=== PATIENT | male | born 1960 | race African-American/Black ===

== ENCOUNTER → 2017-12-17 | Outpatient (CLI) | payer BC ==
--- NOTE | 2017-12-17 17:17 | MR ---
EXAMINATION TYPE: MR lumbar spine wo con DATE OF EXAM: 12/17/2017 COMPARISON: NONE HISTORY: Low Back pain x15 years TECHNIQUE: T1 and T2 axial and sagittal images of the lumbar spine are submitted. FINDINGS: There is no abnormal signal seen within the visualized spinal cord or paraspinal soft tissu es. At L1-2 there is no disc herniation or canal stenosis no foraminal encroachment. At L2-3 there is no disc herniation or canal stenosis. No foraminal encroachment. Hypertrophy of the facets. At L3-4 there is no disc herniation or canal stenosis. There is hypertrophy of the facets. At L4-5 there is facet arthropathy. No disc herniation or canal stenosis. No foraminal encroachment. At L5-S1 there is facet arthropathy. There is mild circumferential disc bulging and mild bilateral fo raminal encroachment. No degenerative disc disease. IMPRESSION: 1. Multilevel facet arthropathy with mild bilateral foraminal encroachment at L5-S1.
== END ==
LOC: RADMRIMAIN 16:08
PROVIDERS: ATTEND Family Medicine
DX: M46.97 Unspecified inflammatory spondylopathy, lumbosacral region (principal)
CPT/HCPCS: 72148

== ENCOUNTER → 2018-06-09 | Outpatient (CLI) | payer BC ==
--- NOTE | 2018-06-09 14:50 | CT ---
EXAMINATION TYPE: CT brain wo con DATE OF EXAM: 06/09/2018 COMPARISON: None HISTORY: 57-year-old male with headaches TECHNIQUE: Examination was done in axial plane without intravenous contrast. Coronal and sagittal r econstructions performed. CT DLP: 1121 mGycm Automated exposure control for dose reduction was used. FINDINGS: There is no evidence of acute intracranial hemorrhage, acute ischemic changes, mass, mass-effect, or extra-axial fluid collection. There is no effacement of cerebral sulci or basal subarachnoid cister ns. There is no hydrocephalus. There is no midline shift. Raymond-white matter distinction is preserv ed. Mild to moderate patchy periventricular white matter hypodensities. Old blowout fracture of the left medial orbital wall and left orbital floor. Mastoid air cells well p neumatized. Trace mucosal thickening left ethmoid air cells. IMPRESSION: No acute intracranial abnormality seen. Mild to moderate patchy changes of chronic small vessel ische cathy disease. Old trauma to the left orbit with blowout fractures medial wall and orbital floor.
== END ==
LOC: RADCTMAIN 13:25
PROVIDERS: ATTEND Family Medicine
DX: I67.82 Cerebral ischemia (principal)
CPT/HCPCS: 70450

== ENCOUNTER → 2018-09-15 | Outpatient (CLI) | payer BC ==
--- NOTE | 2018-09-16 11:00 | XR ---
EXAMINATION TYPE: XR lumbar spine 2 or 3V DATE OF EXAM: 09/15/2018 CLINICAL HISTORY: Remote back injury. Back pain. TECHNIQUE: Frontal and lateral images of the lumbar spine are obtained. COMPARISON: None FINDINGS: There are 5 lumbar type vertebral bodies identified. The lumbar spine shows satisfactory alignment without evidence of acute fracture or dislocation. Vertebral body heights and disk space he ights are within normal limits. Mild facet arthropathy is seen at L3-S1. Small anterior osteophytes are seen from L2 through S1. The oblique images appear within normal limits. The overlying soft tiss ue appears unremarkable. Moderate atherosclerosis of the abdominal aorta is noted. IMPRESSION: No acute fracture or malalignment is seen in the lumbar spine. Mild multilevel degenerat sreekanth disc disease of the lumbar spine.
== END | disposition home or self-care (01) ==
LOC: RADXRMAIN 17:34
PROVIDERS: ATTEND Family Medicine
DX: M51.36 Other intervertebral disc degeneration, lumbar region (principal)
CPT/HCPCS: 72100